=== PATIENT | female | born 1950 | race Caucasian/White ===

== ENCOUNTER → 2025-05-28 13:36 | Outpatient (CLI) | payer MEDICARE, SELFPAY ==
[2025-05-28 17:35] LABS: Influenza A - CEPHEID Flu A NEGATIVE (NEGATIVE); Influenza B - CEPHEID Flu B NEGATIVE (NEGATIVE)
[2025-05-28 17:45] LABS: COVID-19 CEPHEID 4-PLEX PCR Negative (Negative)
== END ==
PROVIDERS: Visit Provider Physician Assistant
DX: R05.1 Acute cough (principal)
CPT/HCPCS: 87070; 87637